=== PATIENT | female | born 2000 | race Caucasian/White ===

== ENCOUNTER 2020-01-11 21:37 | Emergency (ER) | payer BC ==
[~2020-01-11] VITALS: Ht 160 cm; Wt 65.3 kg
[2020-01-11 21:46] VITALS: BP 115/71
--- NOTE | 2020-01-11 22:00 | NUR ---
Late entry from 01/11/20 @2200: Patient presents to ER with both parents with a laceration to throat. Wound was self-inflicted. Per parents, patient has no hx of SA but has a hx of bipolar. Patient admitted to them that two weeks ago she was having a manic episode and had SI with no attempt. Patient is pacing the room and obviously upset. Patient refusing to change into a gown or give up her belongings stating she wants to leave. Able to cricket coach patient to allow us to sit on the gurney and evaluate her wound. Laceration noted to throat, approx 4 inches long. Respirations even and unlabored. Patient does not c/o pain.
[2020-01-11] MEDS ORDERED: LIDOCAINE 1%-EPI 1:100K, 20ML INFIL ONE (22:30)
[2020-01-11] MEDS ORDERED: LIDOCAINE 1%-EPI 1:100K, 20ML ONE (22:35)
[2020-01-11] MEDS ORDERED: L.E.T SOLUTION TP ONE ×2 (22:47→23:00)
--- NOTE | 2020-01-11 22:50 | NUR ---
ERP in room to attempt to numb laceration. Patient uncooperative with procedure. LET applied instead.
[2020-01-11 22:54] LABS: BASOPHILS # (AUTO) 0.03 x10^3/uL (0-0.3); BASOPHILS % (AUTO) 0 % (0-1); EOSINOPHILS # (AUTO) 0.06 x10^3/uL (0-0.8); EOSINOPHILS % (AUTO) 1 % (1-7); LYMPHOCYTES # (AUTO) 2.12 x10^3/uL (1-6.1); LYMPHOCYTES % (AUTO) 32 % (22-44); MD NO; MEAN CORPUSCULAR HEMOGLOBIN 32.1 pg (27.0-34.8); MEAN CORPUSCULAR HGB CONC 33.5 g/dL (32.4-35.8); MEAN CORPUSCULAR VOLUME 95.7 fL (80-100); MEAN PLATELET VOLUME 9.5 fL (7.4-10.4); MONOCYTES # (AUTO) 0.56 x10^3/uL (0-1.4); MONOCYTES % (AUTO) 9 % (2-9); NEUTROPHILS # (AUTO) 3.86 x10^3/uL (1.8-8.0); NEUTROPHILS % (AUTO) 58 % (42-75); PLATELET COUNT 242 x10^3/uL (130-400); RED BLOOD COUNT 4.46 x10^6/uL (3.82-5.3); RED CELL DISTRIBUTION WIDTH 12.5 % (9.6-15.2)
[2020-01-11 23:06] LABS: ANION GAP 6 mmol/L (5-15); CALCIUM 8.9 mg/dL (8.5-10.1); CHLORIDE 109 mmol/L (98-107); CREATININE 0.92 mg/dL (0.55-1.02)
[2020-01-11 23:07] LABS: SALICYLATE LEVEL < 1.7 mg/dL (2.8-20.0)
--- NOTE | 2020-01-11 23:30 | NUR ---
Patient unagreeable to stitches. Irrigated and cleaned wound; applied starry strips.
--- NOTE | 2020-01-11 23:35 | NUR ---
Patient continues to refuse to change into a gown. Belongings remain in room with patient with parents in room. Room secured. Sitter outside.
[2020-01-12] MEDS ORDERED: LORazepam 0.5MG TABLET ONE (00:09)
--- NOTE | 2020-01-12 00:17 | NUR ---
TASK RN: PT STANDING IN ROOM, PACING AND BRIBING MOTHER TO TAKE HER HOME "I PROMISE I'LL SLEEP NEXT TO YOU TONIGHT. YOU CAN KEEP AN EYE ON ME". PT APPEARS ANXIOUS, BUT REASONABLE AND AGREES TO TAKE PO ATIVAN. MOTHER AT BEDSIDE. ROOM SECURE, SITTER PRESENT. MOTHER AND PERSONAL BELONGINGS REMAIN IN ROOM.
--- NOTE | 2020-01-12 00:18 | NUR ---
TP RN:Not able to get authorization from insurance to go to 3E until the am per 3E rn.
[2020-01-12] MEDS ORDERED: LORazepam 0.5MG TABLET PO ONE (00:30)
--- NOTE | 2020-01-12 00:40 | NUR ---
Provided sandwich to patient with water. Patient is cooperative at this time. Family in room.
--- NOTE | 2020-01-12 01:40 | NUR ---
Obtained urine sample and sent to lab.
[2020-01-12 01:44] LABS: AMPHETAMINE SCREEN, URINE Negative (Negative); BARBITURATE SCREEN, URINE Negative (Negative); BENZODIAZEPINE SCREEN, URINE Negative (Negative); CANNABINOID SCREEN, URINE Positive (Negative); COCAINE SCREEN, URINE Negative (Negative); METHADONE SCREEN, URINE Negative (Negative); OPIATE SCREEN, URINE Negative (Negative)
--- NOTE | 2020-01-12 02:38 | NUR ---
[place] [facility] [place]. Mother at bedside. Room secure; sitter outside. Belongings locked in cabinet.
--- NOTE | 2020-01-12 03:30 | NUR ---
Patient resting in [facility] with no complaints. Mother at bedside. Room secure; sitter outside. Belongings locked in cabinet.
--- NOTE | 2020-01-12 04:21 | NUR ---
Patient resting in [facility] with no complaints. Water given to patient. Mother at bedside. Room secure; sitter outside. Belongings locked in cabinet.
--- NOTE | 2020-01-12 04:43 | NUR ---
PSYCH PACKET FAXED TO [facility], [facility], WILIAN ORTEGA.
--- NOTE | 2020-01-12 05:14 | NUR ---
Spoke with Teodora from [facility] [place]. Dr. Norton to accept.
--- NOTE | 2020-01-12 05:14 | NUR ---
Report given to Teodora from [place]. Transfer initiated.
[2020-01-12] MEDS ORDERED: ARIP5TAB13 PO (05:18)
--- NOTE | 2020-01-12 05:33 | NUR ---
Patient advised of transfer to [place] [facility].
--- NOTE | 2020-01-12 06:03 | NUR ---
[facility] arrived to transfer patient. Report given to EMS. Patient cooperative and ambulatory to ambulance.
== END 2020-01-12 06:06 ==
LOC: ED 22:14
DX: S11.91XA Laceration without foreign body of unspecified part of neck, initial encounter (principal); R45.851 Suicidal ideations; F32.9 Major depressive disorder, single episode, unspecified; F17.210 Nicotine dependence, cigarettes, uncomplicated; X58.XXXA Exposure to other specified factors, initial encounter; Y93.89 Activity, other specified; Y92.89 Other specified places as the place of occurrence of the external cause; Y99.8 Other external cause status
CPT/HCPCS: 36415; 80048; 80307; 82040; 84703; 85025; 99285; 99406

== ENCOUNTER 2020-08-16 15:35 | Emergency (ER) | payer BC ==
[~2020-08-16] VITALS: Ht 162.6 cm; Wt 60.0 kg
[~2020-08-16 15:35] MED LIST: ARIP5TAB13 PO
[2020-08-16] MEDS ORDERED: ZIPRASIDONE 20 MG INJ IM ONE ×2 (15:56→16:30)
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
--- NOTE | 2020-08-16 16:44 | NUR ---
Pt sitting in gurney, eyes drooping, shoulders slumping.
--- NOTE | 2020-08-16 17:33 | NUR ---
This RN at bedside for lab draw. Parents remain at bedside. Pt still very anxious, stating "I don't know." Pt told she needs to change into gown. Pt making statements that she doesn't want to. Pt educated that she needs to change by 1800, made aware that it is 1730 and the clothing situation will be readdressed first at 1745 and again at 1800 if necessary. Pt agreeable.
[2020-08-16 17:40] LABS: BASOPHILS % (AUTO) 1 % (0-1); EOSINOPHILS % (AUTO) 1 % (1-7); LYMPHOCYTES % (AUTO) 24 % (22-44); MEAN CORPUSCULAR HEMOGLOBIN 30.9 pg (27.0-34.8); MEAN CORPUSCULAR HGB CONC 34.4 g/dL (32.4-35.8); MONOCYTES % (AUTO) 8 % (2-9); NEUTROPHILS % (AUTO) 66 % (42-75); PLATELET COUNT 209 x10^3/uL (130-400); RED BLOOD COUNT 4.88 x10^6/uL (3.82-5.3); RED CELL DISTRIBUTION WIDTH 12.6 % (9.6-15.2)
[2020-08-16 17:42] LABS: MD NO
[2020-08-16] MEDS ORDERED: LORazepam 1MG TABLET ONE (17:44)
[2020-08-16 17:51] LABS: ALANINE AMINOTRANSFERASE 20 U/L (12-78); ALBUMIN 4.5 g/dL (3.4-5.0); ANION GAP 15 mmol/L (5-15); CALCIUM 9.3 mg/dL (8.5-10.1); CHLORIDE 105 mmol/L (98-107); CREATININE 1.03 mg/dL (0.55-1.02); SALICYLATE LEVEL 1.8 mg/dL (2.8-20.0)
--- NOTE | 2020-08-16 17:59 | NUR ---
Pt undressed and in gown. Pt has bra, underwear and socks and slippers still in her possession. All other belongings in 1 bag with mother. Mother and father remain at bedside.
[2020-08-16] MEDS ORDERED: LORazepam 1MG TABLET PO ONE ×2 (18:00→19:30)
[2020-08-16 18:02] LABS: ALKALINE PHOSPHATASE 85 U/L (45-117); BILIRUBIN,TOTAL 0.5 mg/dL (0.2-1.0); TOTAL PROTEIN 9.4 g/dL (6.4-8.2)
--- NOTE | 2020-08-16 18:02 | NUR ---
Pt took a sip of water and became nauseous. VS done with this event. VSS.
--- NOTE | 2020-08-16 18:35 | NUR ---
TP RN NOTE: [facility] CONTACTED, TRANSFER REQUESTED. BHU RN TO RETURN PHONE CALL ONCE INSURANCE/CHART HAS BEEN REVIEWED.
[2020-08-16] MEDS ORDERED: LORazepam 2 MG/ML, 1ML ONE (18:41)
[2020-08-16] MEDS ORDERED: LORazepam 2 MG/ML, 1ML IM ONE (19:00)
--- NOTE | 2020-08-16 19:03 | NUR ---
Pt up to bathroom for UA. Report to LEANN Gutierrez and LEANN Baez.
--- NOTE | 2020-08-16 19:10 | NUR ---
This RN and MELVINA Traylor at bedside to medicate pt prior to her ambulating to the bathroom. Pt took 1mg oral ativan, this RN and Kymberly both checked pt's mouth, on first check pt did not swallow pill. On second check no evidence of pill was in pt's mouth.
[2020-08-16 20:09] LABS: AMPHETAMINE SCREEN, URINE Negative (Negative); BARBITURATE SCREEN, URINE Negative (Negative); BENZODIAZEPINE SCREEN, URINE Negative (Negative); CANNABINOID SCREEN, URINE Negative (Negative); COCAINE SCREEN, URINE Negative (Negative); METHADONE SCREEN, URINE Negative (Negative); OPIATE SCREEN, URINE Negative (Negative)
[2020-08-16 20:17] LABS: MICROSCOPIC INDICATED
--- NOTE | 2020-08-16 20:40 | NUR ---
[facility] Relief sap pi developer Note: This RN notified ER TP of accepting provider Dr. Martinez, however, prior authorization cannot be completed for [employer] until 8:00 am. This RN also called admitting for assistance with prior authorization, spoke to Elza, whom informed this RN that no staff is available to perform prior authorization until dayshift. ER TP aware [facility] will accept patient after prior authorization is completed at earliest possible time after 8:00 am.
--- NOTE | 2020-08-16 21:08 | NUR ---
SRINATH RN: Faxed packet to [facility].
[2020-08-16 21:28] VITALS: BP 101/72
--- NOTE | 2020-08-16 21:29 | NUR ---
SRINATH RN: Spoke with Samia from [facility]. Dr. Escamilla Prior accepting.
--- NOTE | 2020-08-16 22:02 | NUR ---
Report called to Macho at [facility]. Family updated. Pt awaiting transport. Pt calm and cooperateive at this time. Sleeping in bed. Family at bedside. Pt free of harm. Sitter outside of room. Will monitor.
== END 2020-08-16 22:21 ==
LOC: ED 18:20
DX: F31.2 Bipolar disorder, current episode manic severe with psychotic features (principal); R45.851 Suicidal ideations; F17.200 Nicotine dependence, unspecified, uncomplicated; Z72.9 Problem related to lifestyle, unspecified
CPT/HCPCS: 36415; 80053; 80299; 80307; 80320; 80329; 81001; 84443; 84703; 85025; 87086; 96372; 99285; J3486; G0480

== ENCOUNTER 2021-03-07 16:56 | Emergency (ER) | payer BC ==
[~2021-03-07] VITALS: Ht 162.6 cm; Wt 59.0 kg
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
[2021-03-07] MEDS ORDERED: LORazepam 1MG TABLET ONE (17:27)
[2021-03-07] MEDS ORDERED: OLANZAPINE 10 MG TABLET ONE (17:27)
[2021-03-07] MEDS ORDERED: PLEASE ENTER HEIGHT AND WEIGHT MC SCH (17:30)
[2021-03-07] MEDS ORDERED: OLANZAPINE ODT 10MG PO ONE (17:30)
[2021-03-07] MEDS ORDERED: LORazepam 1MG TABLET PO ONE (17:30)
[2021-03-07] MEDS ORDERED: ZIPRASIDONE 20 MG INJ IM ONE ×2 (17:34→18:00)
[2021-03-07] MEDS ORDERED: LORazepam 2 MG/ML, 1ML ONE (17:34)
--- NOTE | 2021-03-07 17:42 | NUR ---
pt mom: gail [phone] pt father: sheila [phone]
[2021-03-07] MEDS ORDERED: LORazepam 2 MG/ML, 1ML IM ONE (18:00)
--- NOTE | 2021-03-07 18:01 | NUR ---
PATIENT REFUSING TO TAKE PO MEDICATIONS, AND REFUSING TO HAVE LABS DRAWN. ERMD NOTIFIED. ORDERED IM MEDICATIONS AND RESTRAINT ORDER PLACED. IM INJECTION GIVEN, SECURITY CALLED AND PATIENT PLACED IN RESTRAINTS, FEMALE STAFF HELPED PATIENT REMOVE CLOTHING AND LABS DRAWN. RESTRAINTS REMOVED AND DINNER TRAY PROVIDED TO PATIENT.
[2021-03-07 18:10] LABS: BASOPHILS % (AUTO) 1 % (0-1); EOSINOPHILS % (AUTO) 2 % (1-7); LYMPHOCYTES % (AUTO) 39 % (22-44); MEAN CORPUSCULAR HEMOGLOBIN 31.2 pg (27.0-34.8); MEAN CORPUSCULAR HGB CONC 34.3 g/dL (32.4-35.8); MEAN PLATELET VOLUME 9.8 fL (7.4-10.4); MONOCYTES % (AUTO) 10 % (2-9); NEUTROPHILS % (AUTO) 49 % (42-75); PLATELET COUNT 266 x10^3/uL (130-400); RED BLOOD COUNT 4.38 x10^6/uL (3.82-5.3); RED CELL DISTRIBUTION WIDTH 12.5 % (9.6-15.2)
[2021-03-07 18:23] LABS: ALBUMIN 4.3 g/dL (3.4-5.0); ANION GAP 9 mmol/L (5-15); CHLORIDE 105 mmol/L (98-107)
[2021-03-07 18:26] LABS: SALICYLATE LEVEL < 1.7 mg/dL (2.8-20.0)
--- NOTE | 2021-03-07 18:30 | NUR ---
LATE ENTRY DUE TO PATIENT CARE: PATIENT RESTING IN RNEY WITH EYES CLOSED, RESP EVEN AND UNLABORED. SUICIDE PRECAUTIONS IN PLACE, SITTER IN LINE OF SIGHT.
[2021-03-07 18:33] LABS: ALANINE AMINOTRANSFERASE 16 U/L (12-78); ALKALINE PHOSPHATASE 62 U/L (45-117); BILIRUBIN,TOTAL 0.4 mg/dL (0.2-1.0); TOTAL PROTEIN 8.9 g/dL (6.4-8.2)
--- NOTE | 2021-03-07 19:05 | NUR ---
REPORT RECIEVED FROM CHRISTINE RN, PT LAYING IN BED AT THIS TIME, NAD, PT NOT IN RESTRAINTS, PTS RESPERATIONS UNLABORED, SITTER IN LINE OF SIGHT
--- NOTE | 2021-03-07 19:25 | NUR ---
report recieved from jodie puri. pt transported to room 1. pt drowsy and dozing intermittently at this time. in line of sight of douglas.
--- NOTE | 2021-03-07 19:25 | NUR ---
when this rn recieved pt, pt was not in restraints.
--- NOTE | 2021-03-07 19:44 | NUR ---
SRINATH RN: PACKET FAXED TO [facility]
--- NOTE | 2021-03-07 20:44 | NUR ---
pt still lethargic from medication admin on previous shift. pt cooprative with vitals but unable to complete clinical screen and assessment fully. will reassess.
--- NOTE | 2021-03-07 22:34 | NUR ---
pt still very drowsy. pt responds to verbal stimulation but falls asleep slowly after. this rn atempting to ask questions but pt unable to at this time. resp even/unlabored. in line of sight of douglas
--- NOTE | 2021-03-08 00:03 | NUR ---
pt roused and answering questions at this time. pt calm and cooperative, a/o x 4. pt states unable to provide urine sample at this time. will continue to monitor
--- NOTE | 2021-03-08 00:57 | NUR ---
REPORT FROM RENEE ASSUMED CARE OF PT
--- NOTE | 2021-03-08 00:58 | NUR ---
PT SLEEPING IN NAD WITH SITTER AT DOOR
--- NOTE | 2021-03-08 03:17 | NUR ---
PT SLEEPING IN NAD SITTER AT DOOR
--- NOTE | 2021-03-08 03:34 | NUR ---
REPORT FROM LEONIDAS NORIEGA
--- NOTE | 2021-03-08 04:40 | NUR ---
PT RESTING IN BED WITH EYES CLOSED, EVEN AND SYMMETRICAL CHEST RISE, SITTER IN VIEW OF PT, WCTM
--- NOTE | 2021-03-08 04:55 | NUR ---
aTTEMPTED TO WAKE PT TO PROVIDE UA. PT AROUSABLE BUT FALLS RIGHT BACK ASLEEP, WCTM
--- NOTE | 2021-03-08 05:27 | NUR ---
ATTEMPTED TO OBTAIN UDS FROM PT, PT AROUSABLE BUT UNABLE TO KEEP EYES OPEN, NO UA PROVIDED AT THIS TIME
--- NOTE | 2021-03-08 06:57 | NUR ---
Report to Vani NORIEGA
--- NOTE | 2021-03-08 07:02 | NUR ---
Pt report from LEANN Weston. Pt care to be assumed. Urine specimen still needed.
--- NOTE | 2021-03-08 07:08 | NUR ---
Pt dozing, easily awakened. Oriented to name, . Refused to discuss reason for being in ED but denied being afraid of something or someone. Pt notifed of need for urine specimen. Sitter outside room.
--- NOTE | 2021-03-08 07:11 | NUR ---
Breakfast tray ordered.
[2021-03-08 08:15] VITALS: BP 105/56
--- NOTE | 2021-03-08 08:20 | NUR ---
Pt was ambulatory to & from lam BR w/out incident; gait steady. Voided specimen provided: cloudy ugo. Specimen will be walked to lab. Pt unsure why she's in the ED. Informed her of admitting information. Pt denied being curled up in a corner at her home and then stated "but I don't know". Informed pt she may take EMS EKG electrodes off. Pt removed electrodes from legs and torso, then appeared anxious and replaced them. Pt speaking in quick clipped sentences; darting eye movement. Breakfast tray provided. Sitter outside room. [facility] insulation cupola charger outside room for pt update; states the unit will probably accept her and they need a COVID test done.
[2021-03-08 08:36] LABS: MICROSCOPIC INDICATED
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
[2021-03-08 08:44] LABS: AMPHETAMINE SCREEN, URINE Negative (Negative); BARBITURATE SCREEN, URINE Negative (Negative); BENZODIAZEPINE SCREEN, URINE Positive (Negative); CANNABINOID SCREEN, URINE Negative (Negative); COCAINE SCREEN, URINE Negative (Negative); METHADONE SCREEN, URINE Negative (Negative); OPIATE SCREEN, URINE Negative (Negative)
--- NOTE | 2021-03-08 09:00 | NUR ---
COVID swab specimen obtained and walked to lab.
--- NOTE | 2021-03-08 10:28 | NUR ---
Pt report to LEANN Bishop for [facility] room [id number]
[2021-03-08] MEDS ORDERED: QUET400T4 PO (17:56)
[2021-03-08] MEDS ORDERED: SERT100T PO (17:56)
[2021-03-08] MEDS ORDERED: DIVA500T2 PO (17:56)
== END 2021-03-08 11:13 ==
LOC: ED 22:54
DX: F33.3 Major depressive disorder, recurrent, severe with psychotic symptoms (principal); Z20.822 Contact with and (suspected) exposure to COVID-19
CPT/HCPCS: 36415; 80053; 80164; 80299; 80307; 80320; 80329; 81001; 84443; 84703; 85025; 87086; 87426; 96372; 99285; J2060; J3486; G0480

== ENCOUNTER 2021-03-08 09:31 | Inpatient (IN) | payer BC ==
[~2021-03-08] VITALS: Ht 160 cm; Wt 69.2 kg
[2021-03-08] MEDS ORDERED: ACETAMINOPHEN 325 MG TABLET PO PRN (10:30)
[2021-03-08] MEDS ORDERED: ZIPRASIDONE 20 MG INJ IM PRN (10:30)
[2021-03-08] MEDS ORDERED: BISACODYL 10 MG SUPP PR PRN (10:30)
[2021-03-08] MEDS ORDERED: DOCUSATE 100 MG CAPSULE PO PRN (10:30)
[2021-03-08] MEDS ORDERED: ONDANSETRON ODT 4 MG PO PRN (10:30)
[2021-03-08] MEDS ORDERED: ZIPRASIDONE 20MG CAPSULE PO PRN ×2 (10:30→16:30)
[2021-03-08] MEDS ORDERED: POLYETHYLENE GLYCOL 17 GM PACKET PO PRN (10:30)
[2021-03-08] MEDS: LORazepam 1MG TABLET PO PRN (11:39)
[2021-03-08] MEDS ORDERED: PLEASE ENTER HEIGHT AND WEIGHT MC SCH (12:30)
[2021-03-08 12:51] VITALS: BP 112/70
[2021-03-08] MEDS ORDERED: ZIPRASIDONE 20MG CAPSULE ONE (14:00)
[2021-03-08] MEDS ORDERED: QUET400T4 PO (17:56)
[2021-03-08] MEDS ORDERED: SERT100T PO (17:56)
[2021-03-08] MEDS ORDERED: DIVA500T2 PO (17:56)
[2021-03-08 19:22] VITALS: BP 152/88
[2021-03-08] MEDS ORDERED: MELATONIN 5 MG TABLET PO PRN (19:30)
[2021-03-08 19:40] VITALS: BP 114/78
[2021-03-08] MEDS ORDERED: ZIPRASIDONE 40MG CAPSULE PO SCH (21:00)
[2021-03-09 06:06] LABS: CHOL/HDL RATIO 4.3
[2021-03-09 07:18] VITALS: BP 95/64
[2021-03-09] MEDS: ARIPIPRAZOLE 10 MG TABLET PO SCH (15:50)
[2021-03-09] MEDS: SERTRALINE 100MG TABLET PO SCH (15:50)
[2021-03-09 18:37] VITALS: BP 106/73
[2021-03-09] MEDS: DIVALPROEX 500 MG TABLET.DR PO SCH (21:00)
[2021-03-10 07:17] VITALS: BP 111/76
[2021-03-10] MEDS: SERTRALINE 100MG TABLET PO SCH (08:24)
[2021-03-10] MEDS: ARIPIPRAZOLE 10 MG TABLET PO SCH (08:25)
[2021-03-10] MEDS: LORazepam 1MG TABLET PO PRN (08:25)
[2021-03-10 19:45] VITALS: BP 115/75
[2021-03-10] MEDS: DIVALPROEX 500 MG TABLET.DR PO SCH (20:01)
[2021-03-11 07:31] VITALS: BP 109/73
[2021-03-11] MEDS: SERTRALINE 100MG TABLET PO SCH (08:44)
[2021-03-11] MEDS: ARIPIPRAZOLE 10 MG TABLET PO SCH (08:44)
[2021-03-11 18:47] VITALS: BP 108/75
[2021-03-11] MEDS: DIVALPROEX 500 MG TABLET.DR PO SCH (20:27)
[2021-03-12 07:31] VITALS: BP 112/76
[2021-03-12] MEDS: ARIPIPRAZOLE 10 MG TABLET PO SCH (08:32)
[2021-03-12] MEDS: SERTRALINE 100MG TABLET PO SCH (08:32)
[2021-03-12 19:36] VITALS: BP 106/77
[2021-03-12] MEDS: DIVALPROEX 500 MG TABLET.DR PO SCH (21:00)
[2021-03-13 06:34] VITALS: BP 102/72
[2021-03-13] MEDS: ARIPIPRAZOLE 10 MG TABLET PO SCH (09:08)
[2021-03-13] MEDS: SERTRALINE 100MG TABLET PO SCH (09:08)
[2021-03-13 19:41] VITALS: BP 106/76
[2021-03-13] MEDS: DIVALPROEX 500 MG TABLET.DR PO SCH (20:32)
[2021-03-14 07:29] VITALS: BP 109/74
[2021-03-14] MEDS: ARIPIPRAZOLE 10 MG TABLET PO SCH (08:41)
[2021-03-14] MEDS: SERTRALINE 100MG TABLET PO SCH (08:41)
[2021-03-14 19:38] VITALS: BP 105/74
[2021-03-14] MEDS: DIVALPROEX 500 MG TABLET.DR PO SCH (21:15)
[2021-03-15 07:28] VITALS: BP 94/63
[2021-03-15] MEDS: SERTRALINE 100MG TABLET PO SCH (08:44)
[2021-03-15] MEDS: ARIPIPRAZOLE 10 MG TABLET PO SCH (08:44)
[2021-03-15 19:44] VITALS: BP 100/69
[2021-03-16 07:19] VITALS: BP 99/69
[2021-03-16] MEDS: SERTRALINE 100MG TABLET PO SCH (08:53)
[2021-03-16] MEDS: ARIPIPRAZOLE 10 MG TABLET PO SCH (08:53)
[2021-03-16 19:51] VITALS: BP 104/72
[2021-03-17 07:15] VITALS: BP 112/73
[2021-03-17] MEDS: SERTRALINE 100MG TABLET PO SCH (08:37)
[2021-03-17] MEDS: ARIPIPRAZOLE 10 MG TABLET PO SCH (08:37)
[2021-03-17 19:30] VITALS: BP 108/75
[2021-03-18 07:20] VITALS: BP 106/74
[2021-03-18] MEDS: SERTRALINE 100MG TABLET PO SCH (09:16)
[2021-03-18] MEDS: ARIPIPRAZOLE 10 MG TABLET PO SCH (09:16)
[2021-03-18 19:16] VITALS: BP 103/70
[2021-03-19 07:38] VITALS: BP 101/63
[2021-03-19] MEDS: SERTRALINE 100MG TABLET PO SCH (08:42)
[2021-03-19] MEDS: ARIPIPRAZOLE 10 MG TABLET PO SCH (08:42)
[2021-03-19 19:24] VITALS: BP 105/70
[2021-03-20 07:25] VITALS: BP 102/69
[2021-03-20] MEDS: SERTRALINE 100MG TABLET PO SCH (08:43)
[2021-03-20] MEDS: ARIPIPRAZOLE 10 MG TABLET PO SCH (08:43)
[2021-03-20 19:17] VITALS: BP 103/72
[2021-03-21 07:33] VITALS: BP 95/65
[2021-03-21] MEDS: ARIPIPRAZOLE 10 MG TABLET PO SCH (08:18)
[2021-03-21] MEDS: SERTRALINE 100MG TABLET PO SCH (08:18)
[2021-03-21 19:37] VITALS: BP 101/69
[2021-03-22 08:05] VITALS: BP 101/69
[2021-03-22] MEDS: ARIPIPRAZOLE 10 MG TABLET PO SCH (08:31)
[2021-03-22] MEDS: SERTRALINE 100MG TABLET PO SCH (08:31)
[2021-03-22 19:07] VITALS: BP 99/70
[2021-03-23 07:28] VITALS: BP 107/74
[2021-03-23] MEDS: ARIPIPRAZOLE 10 MG TABLET PO SCH (08:45)
[2021-03-23] MEDS: SERTRALINE 100MG TABLET PO SCH (08:45)
[2021-03-23 19:26] VITALS: BP 101/63
[2021-03-24 07:14] VITALS: BP 109/73
[2021-03-24] MEDS: ARIPIPRAZOLE 10 MG TABLET PO SCH (08:17)
[2021-03-24] MEDS: SERTRALINE 100MG TABLET PO SCH (08:17)
[2021-03-24 19:26] VITALS: BP 105/71
[2021-03-25] MEDS: HYDROXYZINE PAMOATE 50MG CAP PO PRN ×3 (04:29→22:24)
[2021-03-25 07:22] VITALS: BP 109/76
[2021-03-25] MEDS: SERTRALINE 100MG TABLET PO SCH (08:33)
[2021-03-25] MEDS: ARIPIPRAZOLE 15 MG TABLET PO SCH (08:34)
[2021-03-25 19:29] VITALS: BP 100/72
[2021-03-26 07:45] VITALS: BP 107/73
[2021-03-26] MEDS: SERTRALINE 100MG TABLET PO SCH (09:49)
[2021-03-26] MEDS: ARIPIPRAZOLE 15 MG TABLET PO SCH (09:49)
[2021-03-26 19:47] VITALS: BP 108/73
[2021-03-27 07:43] VITALS: BP 109/74
[2021-03-27] MEDS: SERTRALINE 100MG TABLET PO SCH (09:04)
[2021-03-27] MEDS: ARIPIPRAZOLE 15 MG TABLET PO SCH (09:04)
[2021-03-27 19:25] VITALS: BP 105/73
[2021-03-27] MEDS: LORazepam 1MG TABLET PO PRN (20:52)
[2021-03-28 08:11] VITALS: BP 100/67
[2021-03-28] MEDS: ARIPIPRAZOLE 15 MG TABLET PO SCH (09:39)
[2021-03-28] MEDS: SERTRALINE 100MG TABLET PO SCH (09:39)
[2021-03-28] MEDS: LORazepam 1MG TABLET PO PRN (09:39)
[2021-03-28 19:20] VITALS: BP 104/72
[2021-03-29 07:23] VITALS: BP 114/80
[2021-03-29] MEDS: ARIPIPRAZOLE 15 MG TABLET PO SCH (08:22)
[2021-03-29] MEDS: SERTRALINE 100MG TABLET PO SCH (08:23)
[2021-03-29 19:29] VITALS: BP 96/67
[2021-03-30 07:18] VITALS: BP 109/74
[2021-03-30] MEDS: SERTRALINE 100MG TABLET PO SCH (08:24)
[2021-03-30] MEDS: ARIPIPRAZOLE 15 MG TABLET PO SCH (08:24)
[2021-03-30 19:36] VITALS: BP 109/74
[2021-03-31 07:26] VITALS: BP 108/72
[2021-03-31] MEDS: ARIPIPRAZOLE 15 MG TABLET PO SCH (08:22)
[2021-03-31] MEDS: SERTRALINE 100MG TABLET PO SCH (08:22)
[2021-03-31 19:17] VITALS: BP 107/75
[2021-04-01 05:50] VITALS: BP 103/69
[2021-04-01] MEDS: SERTRALINE 100MG TABLET PO SCH (08:55)
[2021-04-01] MEDS: ARIPIPRAZOLE 15 MG TABLET PO SCH (08:55)
[2021-04-01 19:35] VITALS: BP 102/70
[2021-04-02 07:39] VITALS: BP 106/73
[2021-04-02] MEDS: SERTRALINE 100MG TABLET PO SCH (08:04)
[2021-04-02] MEDS: ARIPIPRAZOLE 15 MG TABLET PO SCH (08:04)
[2021-04-02 19:56] VITALS: BP 103/72
[2021-04-03 07:34] VITALS: BP 109/76
[2021-04-03] MEDS: SERTRALINE 100MG TABLET PO SCH (09:15)
[2021-04-03] MEDS: ARIPIPRAZOLE 15 MG TABLET PO SCH (09:17)
[2021-04-03 19:27] VITALS: BP 100/71
[2021-04-04 07:26] VITALS: BP 107/73
[2021-04-04] MEDS: ARIPIPRAZOLE 15 MG TABLET PO SCH (09:00)
[2021-04-04] MEDS: SERTRALINE 100MG TABLET PO SCH (09:51)
[2021-04-04 19:27] VITALS: BP 111/76
[2021-04-05 07:26] VITALS: BP 112/78
[2021-04-05] MEDS: SERTRALINE 100MG TABLET PO SCH (07:56)
[2021-04-05] MEDS: ARIPIPRAZOLE 15 MG TABLET PO SCH (07:58)
[2021-04-05 19:24] VITALS: BP 110/76
[2021-04-06 07:34] VITALS: BP 103/68
[2021-04-06] MEDS: SERTRALINE 100MG TABLET PO SCH (09:13)
[2021-04-06] MEDS: ARIPIPRAZOLE 15 MG TABLET PO SCH (09:14)
[2021-04-06] MEDS: HYDROXYZINE PAMOATE 50MG CAP PO PRN (09:22)
[2021-04-06] MEDS: DIPHENHYDRAMINE/ZINC CRM 2%, 30GM TP SCH (12:41)
[2021-04-06 19:47] VITALS: BP 103/70
[2021-04-07 07:21] VITALS: BP 103/71
[2021-04-07] MEDS: ARIPIPRAZOLE 10 MG TABLET PO SCH (09:01)
[2021-04-07] MEDS: SERTRALINE 100MG TABLET PO SCH (09:02)
[2021-04-07] MEDS: DIPHENHYDRAMINE/ZINC CRM 2%, 30GM TP SCH (09:02)
[2021-04-07 19:15] VITALS: BP 108/73
[2021-04-08 06:20] VITALS: BP 103/69
[2021-04-08] MEDS: SERTRALINE 100MG TABLET PO SCH (08:42)
[2021-04-08] MEDS: DIPHENHYDRAMINE/ZINC CRM 2%, 30GM TP SCH ×3 (08:43→20:34)
[2021-04-08] MEDS: ARIPIPRAZOLE 10 MG TABLET PO SCH (08:43)
[2021-04-08] MEDS: HYDROXYZINE PAMOATE 50MG CAP PO PRN (15:31)
[2021-04-08 20:10] VITALS: BP 103/71
[2021-04-09 07:33] VITALS: BP 105/73
[2021-04-09] MEDS: ARIPIPRAZOLE 10 MG TABLET PO SCH (09:14)
[2021-04-09] MEDS: HYDROXYZINE PAMOATE 50MG CAP PO PRN (09:15)
[2021-04-09] MEDS: SERTRALINE 100MG TABLET PO SCH (09:15)
[2021-04-09] MEDS: DIPHENHYDRAMINE/ZINC CRM 2%, 30GM TP SCH ×2 (09:18→20:44)
[2021-04-09 20:22] VITALS: BP 107/75
[2021-04-10 07:42] VITALS: BP 105/71
[2021-04-10] MEDS: SERTRALINE 100MG TABLET PO SCH (08:23)
[2021-04-10] MEDS: ARIPIPRAZOLE 10 MG TABLET PO SCH (08:27)
[2021-04-10] MEDS: DIPHENHYDRAMINE/ZINC CRM 2%, 30GM TP SCH ×2 (09:00→20:53)
[2021-04-10 19:58] VITALS: BP 105/73
[2021-04-11 07:24] VITALS: BP 115/77
[2021-04-11] MEDS: SERTRALINE 100MG TABLET PO SCH (09:09)
[2021-04-11] MEDS: DIPHENHYDRAMINE/ZINC CRM 2%, 30GM TP SCH (09:10)
[2021-04-11] MEDS: ARIPIPRAZOLE 10 MG TABLET PO SCH (09:10)
[2021-04-11] MEDS ORDERED: HYDR50CA2 PO (14:09)
[2021-04-11] MEDS ORDERED: SERT100T32 PO (14:09)
[2021-04-11] MEDS ORDERED: MELA5TAB14 PO (14:09)
[2021-04-11] MEDS ORDERED: ARIP10TA33 PO (14:09)
[2021-04-11] MEDS ORDERED: DIPH28.44 TP (14:09)
== END 2021-04-11 14:54 | disposition home or self-care (01) | DRG 885 ==
LOC: 3E 11:18
PROVIDERS: ADMIT Psychiatry & Neurology Psychosomatic Medicine; ATTEND Psychiatry & Neurology Psychosomatic Medicine
DX: F20.0 Paranoid schizophrenia (principal); F10.11 Alcohol abuse, in remission; F31.9 Bipolar disorder, unspecified; F41.1 Generalized anxiety disorder; F42.9 Obsessive-compulsive disorder, unspecified; F63.3 Trichotillomania; Z20.822 Contact with and (suspected) exposure to COVID-19; Z79.899 Other long term (current) drug therapy; Z91.14 Patient's other noncompliance with medication regimen; Z91.19 Patient's noncompliance with other medical treatment and regimen; Z88.1 Allergy status to other antibiotic agents
CPT/HCPCS: 36415; 71045; 80061; 93005; U0005; U0003